=== PATIENT | female | born 1945 | race Caucasian/White ===

== ENCOUNTER 2024-04-28 07:41 | Day surgery (SDC) | payer MEDICARE, OTHER ==
[~2024-04-28] VITALS: Ht 152.4 cm; Wt 68.1 kg
[~2024-04-28 07:41] MED LIST: DICY-61 PO; ESTR62CR VG; EZET10TA21 PO; LEVO50TA5 PO; MIDAZOLAM INJ 2MG/2ML VIAL As Ordered ONE; OMEP40CA5 PO; ONDA-282 PO; PHENYLEPHRINE 10% OPHTH SOL 5ML OD PRN; SERT50TA29 PO; fentaNYL 100 MCG/2 ML INJECTION As Ordered ONE
[2024-04-28] MEDS: PHENYLEPHRINE 2.5% OPHTH SOL 2ML OD SCH (07:57)
[2024-04-28] MEDS: OFLOXACIN 0.3 % (OCUFLOX) OPTH SOL 5ML OD ONE (07:57)
[2024-04-28] MEDS: TROPICAMIDE 1% OPHTH SOLN 15ML OD SCH (07:57)
[2024-04-28] MEDS: LIDOCAINE 3.5 % 1ML OPHTH TOPICAL GEL OU ONE (07:57)
[2024-04-28] MEDS: ATROPINE SULFATE 1% OPHTH SOLN 2ML BTL OD SCH (07:57)
[2024-04-28] MEDS: BSS IRRIG/VANCO(10MG)/TOBRA(5MG)/EPINEPH(1:1000-0.5CC)500ML BAG-ORONLY As Ordered ONE (08:37)
[2024-04-28] MEDS: LIDOCAINE 1% SDV 5ML VIAL As Ordered ONE (08:37)
[2024-04-28] MEDS: TRYPAN BLUE 0.06 % 2.25 ML OPHTH SYR (VISIONBLUE) As Ordered ONE (08:37)
[2024-04-28] MEDS: CEFUROXIME 1MG/0.1ML INTRACAMERAL INJ As Ordered ONE (08:44)
[2024-04-28 08:56] VITALS: BP 157/70; TEMP 96.8; O2SAT 98
== END 2024-04-28 09:12 | disposition home or self-care (01) ==
LOC: M SDC 07:41
PROVIDERS: ATTEND Ophthalmology
DX: H25.11 Age-related nuclear cataract, right eye (principal); H57.03 Miosis; H40.811 Glaucoma with increased episcleral venous pressure, right eye; Z88.0 Allergy status to penicillin; E78.5 Hyperlipidemia, unspecified; K21.9 Gastro-esophageal reflux disease without esophagitis; Z79.899 Other long term (current) drug therapy
CPT/HCPCS: 66183; 66987; 92015; J0697; J2250; J3010; V2788

== ENCOUNTER 2024-08-03 08:29 | Day surgery (SDC) | payer MEDICARE, OTHER ==
[~2024-08-03] VITALS: Ht 154.9 cm; Wt 68.0 kg
[~2024-08-03 08:29] MED LIST changes: -MIDAZOLAM INJ 2MG/2ML VIAL As Ordered ONE; -PHENYLEPHRINE 10% OPHTH SOL 5ML OD PRN; +PHENYLEPHRINE 10% OPHTH SOL 5ML OS PRN; -fentaNYL 100 MCG/2 ML INJECTION As Ordered ONE
[2024-08-03] MEDS: PHENYLEPHRINE 2.5% OPHTH SOL 2ML OS SCH (10:32)
[2024-08-03] MEDS: OFLOXACIN 0.3 % (OCUFLOX) OPTH SOL 5ML OS ONE (10:32)
[2024-08-03] MEDS: TROPICAMIDE 1% OPHTH SOLN 15ML OS SCH (10:32)
[2024-08-03] MEDS: LIDOCAINE 3.5 % 1ML OPHTH TOPICAL GEL OU ONE (10:32)
[2024-08-03] MEDS: ATROPINE SULFATE 1% OPHTH SOLN 2ML BTL OS SCH (10:32)
[2024-08-03] MEDS ORDERED: fentaNYL 100 MCG/2 ML INJECTION As Ordered ONE (10:45)
[2024-08-03] MEDS ORDERED: MIDAZOLAM INJ 2MG/2ML VIAL As Ordered ONE (10:45)
[2024-08-03] MEDS ORDERED: ONDANSETRON 4MG 2ML VIAL IV ONE (11:00)
[2024-08-03] MEDS ORDERED: SODIUM CHLORIDE 0.9% 250ML IV ONE (11:00)
[2024-08-03] MEDS ORDERED: ONDANSETRON 4MG 2ML VIAL As Ordered ONE (11:02)
[2024-08-03] MEDS: LIDOCAINE 1% SDV 5ML VIAL As Ordered ONE (11:17)
[2024-08-03] MEDS: CEFUROXIME 1MG/0.1ML INTRACAMERAL INJ As Ordered ONE (11:20)
[2024-08-03] MEDS: BSS IRRIG/VANCO(10MG)/TOBRA(5MG)/EPINEPH(1:1000-0.5CC)500ML BAG-ORONLY As Ordered ONE (11:20)
[2024-08-03 11:45] VITALS: BP 137/79; TEMP 96.9; O2SAT 98
== END 2024-08-03 12:00 | disposition home or self-care (01) ==
LOC: M SDC 08:29
PROVIDERS: ATTEND Ophthalmology
DX: H25.12 Age-related nuclear cataract, left eye (principal); E78.5 Hyperlipidemia, unspecified; K21.9 Gastro-esophageal reflux disease without esophagitis; Z79.899 Other long term (current) drug therapy; Z88.0 Allergy status to penicillin
CPT/HCPCS: 66984; 92015; J0697; J2250; J3010; V2788